=== PATIENT | female | born 1985 | race Caucasian/White ===

== ENCOUNTER 2017-11-10 02:24 | Emergency (ER) | payer OTHER ==
[2017-11-10 02:43] VITALS: BP 110/71; PULSE 75; TEMP 97.6; BMI 22.6
--- NOTE | 2017-11-10 02:47 | PDOC ---
History of Present Illness - General History Source: Patient Exam Limitations: No Limitations - History of Present Illness Initial Comments: 11/10/17 03:01 The patient is a 32 year old female with no significant PMH who presents to the emergency department with dysuria, urinary frequency, and urinary urgency beginning approximately 5 days ago. She reports she has had to go the bathroom more frequently and has noted burning while urinating. She states her LMP was . The patient denies fevers or chills. She denies sick contacts. The patient denies chest pain, shortness of breath, headache and dizziness. Denies fever, chills, nausea, vomit, diarrhea and constipation. Allergies: NKA Past surgical history: Salpingectomy. B/l breast augmentation. Social history: No reported cigarette, alcohol, or drug use. PCP: None reported. <Shyam Ha - Last Filed: 11/10/17 03:01> - General History Source: Patient <Bryan Rios - Last Filed: 11/10/17 03:36> - General Chief Complaint: Urinary Problem Stated Complaint: R/O UTI Time Seen by Provider: 11/10/17 02:46 Past History <Shyam Ha - Last Filed: 11/10/17 03:01> - Past Medical History COPD: No Other medical history: Pt denies - Suicide/Smoking/Psychosocial Hx Smoking History: Never smoked Have you smoked in the past 12 months: No Information on smoking cessation initiated: No Hx Alcohol Use: No Drug/Substance Use Hx: No Substance Use Type: None <Bryan Rios - Last Filed: 11/10/17 03:36> - Past Medical History Allergies/Adverse Reactions: Allergies Allergy/AdvReac Type Severity Reaction Status Date / Time No Known Allergies Allergy Verified 11/10/17 02:38 Home Medications: Ambulatory Orders Ibuprofen [Motrin -] 600 mg PO TID #30 tablet 11/10/17 Phenazopyridine HCl [Pyridium] 100 mg PO TID #6 tablet 11/10/17 levoFLOXacin [Levaquin -] 500 mg PO DAILY #7 tablet 11/10/17 Review of Systems - Review of Systems Able to Perform ROS?: Yes Comments:: 11/10/17 03:01 CONSTITUTIONAL: Absent: fever, chills, diaphoresis, generalized weakness, malaise, loss of appetite HEENT: Absent: rhinorrhea, nasal congestion, throat pain, throat swelling, difficulty swallowing, mouth swelling, ear pain, eye pain, visual Changes CARDIOVASCULAR: Absent: chest pain, syncope, palpitations, irregular heart rate, lightheadedness , peripheral edema RESPIRATORY: Absent: cough, shortness of breath, dyspnea with exertion, orthopnea, wheezing, stridor, hemoptysis GASTROINTESTINAL: Absent: abdominal pain, abdominal distension, nausea, vomiting, diarrhea, constipation, melena, hematochezia GENITOURINARY: (+) Dysuria. (+) Increased urinary frequency and urgency. Absent: hesitancy, flank pain, genital pain MUSCULOSKELETAL: Absent: myalgia, arthralgia, joint swelling SKIN: Absent: rash, itching, pallor HEMATOLOGIC/IMMUNOLOGIC: Absent: easy bleeding, easy bruising, lymphadenopathy, frequent infections ENDOCRINE: Absent: unexplained weight gain, unexplained weight loss, heat intolerance, cold intolerance NEUROLOGIC: Absent: headache, focal weakness or paresthesias, dizziness, unsteady gait, seizure, mental status changes, bladder or bowel incontinence PSYCHIATRIC: Absent: anxiety, depression, suicidal or homicidal ideation, hallucinations. <Shyam Ha - Last Filed: 11/10/17 03:01> *Physical Exam - Vital Signs Last Vital Signs Temp Pulse Resp BP Pulse Ox 97.6 F 75 18 110/71 100 11/10/17 02:39 11/10/17 02:39 11/10/17 02:39 11/10/17 02:39 11/10/17 02:39 - Physical Exam Comments: 11/10/17 03:01 GENERAL: Well developed, well nourished. Awake and alert. No acute distress. HEENT: Normocephalic, atraumatic. PERRLA, EOMI. No conjunctival pallor. Sclera are non- icteric. Moist mucous membranes. Oropharynx is clear. NECK: Supple. Full ROM. No JVD. Carotid pulses 2+ and symmetric, without bruits. No thyromegaly. No lymphadenopathy. CARDIOVASCULAR: Regular rate and rhythm. No murmurs, rubs, or gallops. Distal pulses are 2+ and symmetric. PULMONARY: No evidence of respiratory distress. Lungs clear to auscultation bilaterally. No wheezing, rales or rhonchi. ABDOMINAL: Soft. Non-tender. Non-distended. No rebound or guarding. No organomegaly. Normoactive bowel sounds. MUSCULOSKELETAL Normal range of motion at all joints. No bony deformities or tenderness. No CVA tenderness. EXTREMITIES: No cyanosis. No clubbing. No edema. No calf tenderness. SKIN: Warm and dry. Normal capillary refill. No rashes. No jaundice. NEUROLOGICAL: Alert, awake, appropriate. Cranial nerves 2-12 intact. No deficits to light touch and temperature in face, upper extremities and lower extremities. No motor deficits in the in face, upper extremities and lower extremities. Normoreflexic in the upper and lower extremities. Normal speech. Toes are downgoing bilaterally. Gait is normal without ataxia. PSYCHIATRIC: Cooperative. Good eye contact. Appropriate mood and affect. <Shyam Ha - Last Filed: 11/10/17 03:01> - Vital Signs Last Vital Signs Temp Pulse Resp BP Pulse Ox 97.6 F 75 18 110/71 100 11/10/17 02:39 11/10/17 02:39 11/10/17 02:39 11/10/17 02:39 11/10/17 02:39 <Bryan Rios - Last Filed: 11/10/17 03:36> Medical Decision Making - Medical Decision Making 11/10/17 03:36 Dr. Rios: The scribe's documentation has been prepared under my direction and personally reviewed by me in its entirery. I confirm that the note above accurately reflects all work, treatment, procedures, and medical decision making performed by me. <Bryan Rios - Last Filed: 11/10/17 03:36> *DC/Admit/Observation/Transfer - Attestations Scribe Attestion: 11/10/17 03:01 Documentation prepared by Shyam Ha, acting as medical coding specialist for Bryan Rios DO. <Shyam Ha - Last Filed: 11/10/17 03:01> - Discharge Dispostion Admit: No <Bryan Rios - Last Filed: 11/10/17 03:36> Diagnosis at time of Disposition: UTI (urinary tract infection) Qualifiers: Urinary tract infection type: site unspecified Hematuria presence: without hematuria Qualified Code(s): N39.0 - Urinary tract infection, site not specified - Discharge Dispostion Disposition: HOME Condition at time of disposition: Stable - Prescriptions Prescriptions: Ibuprofen [Motrin -] 600 mg PO TID #30 tablet levoFLOXacin [Levaquin -] 500 mg PO DAILY #7 tablet Phenazopyridine HCl [Pyridium] 100 mg PO TID #6 tablet - Referrals Referrals: Mary Newsome MD [Staff Physician] - Jarvis Monk MD [Staff Physician] - - Patient Instructions Printed Discharge Instructions: DI for Urinary Tract Infection (UTI)
[2017-11-10 03:09] LABS: URINE APPEARANCE CLOUDY; URINE BILIRUBIN NEGATIVE (<2.0 mg/dL); URINE BLOOD 2+ (NEGATIVE); URINE COLOR YELLOW; URINE GLUCOSE (UA) NEGATIVE (NEGATIVE); URINE KETONE NEGATIVE (NEGATIVE); URINE NITRITE NEGATIVE (NEGATIVE)
[2017-11-10 03:15] LABS: HCG,QUALITATIVE URINE NEGATIVE
[2017-11-10 03:16] LABS: URINE LEUK ESTERASE 3+ (NEGATIVE); URINE PROTEIN 1+ (NEGATIVE)
[2017-11-10 03:21] LABS: EPI CELLS RARE /HPF (FEW); URINE MUCUS RARE
[2017-11-10] MEDS ORDERED: IBUPROFEN 600 MG TABLET (FP) PO STA (03:33)
[2017-11-10] MEDS ORDERED: PHENAZOPYRIDINE HCL 100 MG TABLET (FP) PO STA (03:33)
[2017-11-10] MEDS ORDERED: IBUPROFEN 600 MG TABLET (FP) PO ONE (03:41)
[2017-11-10] MEDS ORDERED: PHENAZOPYRIDINE HCL 100 MG TABLET (FP) ONE (03:41)
== END 2017-11-10 03:48 | disposition home or self-care (01) ==
LOC: JER 02:24
DX: N39.0 Urinary tract infection, site not specified (principal)
CPT/HCPCS: 81003; 81015; 84703; 87086; 99281-25